=== PATIENT | female | born 1995 | race American Indian/Alaskan Native ===

== ENCOUNTER 2018-02-20 12:59 | Outpatient (CLI) | payer BC, MEDICAID | END 2018-02-20 14:33 | disposition home or self-care (01) | LOC: TRG 12:59 | PROVIDERS: ATTEND Obstetrics & Gynecology | DX: O47.1 False labor at or after 37 completed weeks of gestation (principal); Z3A.40 40 weeks gestation of pregnancy | CPT/HCPCS: 59025 ==

== ENCOUNTER 2018-02-22 11:51 | Outpatient (CLI) | payer BC, MEDICAID ==
[2018-02-23 20:39] VITALS: BP 163/85
== END 2018-02-22 13:07 | disposition home or self-care (01) ==
LOC: TRG 11:51
PROVIDERS: ATTEND Obstetrics & Gynecology
DX: O47.1 False labor at or after 37 completed weeks of gestation (principal); Z3A.40 40 weeks gestation of pregnancy
CPT/HCPCS: 59025